=== PATIENT | male | born 1950 | race Caucasian/White ===

== ENCOUNTER → 2017-05-01 19:31 | Outpatient (CLI) | payer BC, MEDICARE | END | disposition home or self-care (01) | LOC: D.SLEEP 19:31 | DX: G47.33 Obstructive sleep apnea (adult) (pediatric) (principal) ==

== ENCOUNTER 2017-09-27 05:21 | Day surgery (SDC) | payer BC, MEDICARE ==
[2017-09-26 16:10] LABS: HEMATOCRIT 37.5 % (42.0-54.0); HEMOGLOBIN 12.5 g/dL (13.5-17.5); MCHC 33.3 g/dL (31.0-37.0); MCV 83.9 fL (80.0-100.0); RBC 4.47 10x6/uL (4.20-6.10); WBC 11.3 10x3/uL (4.8-10.8)
[~2017-09-27] VITALS: Ht 182.9 cm; Wt 113.4 kg
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
[2017-09-27] MEDS ORDERED: OMEPRAZOLE20 M1 PO (09:19)
[2017-09-27] MEDS ORDERED: DIOVAN80 MG PO (09:20)
[2017-09-27] MEDS ORDERED: NIFEDIPINE ER60 MG PO (09:20)
[2017-09-27] MEDS ORDERED: ARICEPT5 MG PO (09:21)
[2017-09-27] MEDS ORDERED: LEXAPRO20 MG PO (09:21)
[2017-09-27] MEDS ORDERED: ATIVAN1 MG PO (09:22)
[2017-09-27] MEDS ORDERED: DESERYL100 MG PO (09:22)
[2017-09-27] MEDS ORDERED: FLOMAX0.4 MG PO (09:22)
[2017-09-27] MEDS ORDERED: PROAIR HFA8.5 GM INH (09:23)
[2017-09-27] MEDS ORDERED: IBUPROFEN800 MG PO (09:23)
[2017-09-27] MEDS ORDERED: NEURONTIN600 MG PO (09:23)
[2017-09-27] MEDS ORDERED: ULTRAM50 MG PO (09:24)
[2017-09-27] MEDS ORDERED: LIORESAL 10 MG10 MG PO (09:25)
[2017-09-27 09:29] VITALS: BP 147/80; Ht 182.9 cm; Wt 113.4 kg
[2017-09-27] MEDS ORDERED: PROSCAR5 MG PO (12:35)
== END 2017-09-27 13:30 | disposition home or self-care (01) ==
LOC: D.OPS 05:21 → D.PAN 07:30 → D.OPS 10:45
PROVIDERS: Anesthesiology
DX: N39.41 Urge incontinence (principal); N40.0 Benign prostatic hyperplasia without lower urinary tract symptoms; J45.909 Unspecified asthma, uncomplicated; I10 Essential (primary) hypertension; I50.9 Heart failure, unspecified; J44.9 Chronic obstructive pulmonary disease, unspecified; G47.30 Sleep apnea, unspecified; K21.9 Gastro-esophageal reflux disease without esophagitis; Z01.812 Encounter for preprocedural laboratory examination

== ENCOUNTER 2018-06-21 09:59 | Inpatient (IN) | payer BC, MEDICARE ==
[~2018-06-21 09:59] MED LIST: ARICEPT5 MG PO; ATIVAN1 MG PO; DESERYL100 MG PO; DIOVAN80 MG PO; FLOMAX0.4 MG PO; IBUPROFEN800 MG PO; LEXAPRO20 MG PO; LIORESAL 10 MG10 MG PO; NEURONTIN600 MG PO; NIFEDIPINE ER60 MG PO; OMEPRAZOLE20 M1 PO; PROAIR HFA8.5 GM INH; PROSCAR5 MG PO; ULTRAM50 MG PO
[2018-06-21] MEDS ORDERED: NORCO 10-325 TA1 TAB PO (13:16)
[2018-06-21 13:39] LABS: BASOPHILS 0.1 % (0-2); EOSINOPHILS 0.5 % (0-7); HEMATOCRIT 41.1 % (42.0-54.0); HEMOGLOBIN 14.2 g/dL (13.5-17.5); IMMATURE GRANULOCYTES 0.3 % (0-5); LYMPHOCYTES 13.5 % (15-50); MCH 30.1 pg (26.0-34.0); MCHC 34.5 g/dL (31.0-37.0); MCV 87.3 fL (80.0-100.0); MEAN PLATELET VOLUME 9.3 fL (7.4-10.4); MONOCYTES 7.4 % (2-11); NEUTROPHILS 78.2 % (40-80); PLATELET COUNT 236 10x3/uL (130-400); RBC 4.71 10x6/uL (4.20-6.10); RDW 14.4 % (11.5-14.5); WBC 12.9 10x3/uL (4.8-10.8)
[2018-06-21 13:58] LABS: ALBUMIN 3.7 g/dL (3.4-5.0); ANION GAP 12.9 mmol/L (8-16); BILIRUBIN - TOTAL 0.7 mg/dL (0.2-1.3); CALCIUM 8.8 mg/dL (8.5-10.1); CARBON DIOXIDE 23.7 mmol/L (21.0-32.0); CREATININE - SERUM 1.8 mg/dL (0.6-1.3); POTASSIUM - SERUM 3.6 mmol/L (3.5-5.1); PROTEIN - SERUM 7.4 g/dL (6.4-8.2)
[2018-06-21 18:03] LABS: APPEARANCE CLEAR (CLEAR); BILIRUBIN NEGATIVE (NEGATIVE); COLOR YELLOW (YELLOW); GLUCOSE NEGATIVE (NEGATIVE); KETONE NEGATIVE (NEGATIVE); NITRITE NEGATIVE (NEGATIVE); PROTEIN 1+ mg/dL (NEGATIVE); SPECIFIC GRAVITY 1.015 (1.005-1.020); UROBILINOGEN NORMAL (NORMAL)
[2018-06-21 18:07] LABS: BACTERIA FEW /hpf (NONE SEEN); EPITHELIAL CELLS 0-5 /hpf (0-5); WHITE CELLS - URINE 0-5 /hpf (0-5)
[2018-06-21 20:00] VITALS: BP 172/95
[2018-06-21 21:09] VITALS: BMI 34.0
[2018-06-22] VITALS: BP 177/94
[2018-06-22 04:00] VITALS: BP 172/86
[2018-06-22 05:47] LABS: BASOPHILS 0.2 % (0-2); EOSINOPHILS 2.5 % (0-7); HEMOGLOBIN 13.4 g/dL (13.5-17.5); IMMATURE GRANULOCYTES 0.3 % (0-5); LYMPHOCYTES 19.7 % (15-50); MCH 29.3 pg (26.0-34.0); MCHC 33.5 g/dL (31.0-37.0); MCV 87.3 fL (80.0-100.0); MEAN PLATELET VOLUME 9.4 fL (7.4-10.4); MONOCYTES 11.9 % (2-11); NEUTROPHILS 65.4 % (40-80); PLATELET COUNT 247 10x3/uL (130-400); RBC 4.58 10x6/uL (4.20-6.10); RDW 14.3 % (11.5-14.5); WBC 12.9 10x3/uL (4.8-10.8)
[2018-06-22 06:28] LABS: ALBUMIN 3.4 g/dL (3.4-5.0); ANION GAP 15.5 mmol/L (8-16); BILIRUBIN - TOTAL 0.65 mg/dL (0.2-1.3); CALCIUM 8.3 mg/dL (8.5-10.1); CARBON DIOXIDE 21.7 mmol/L (21.0-32.0); CREATININE - SERUM 1.6 mg/dL (0.6-1.3); MAGNESIUM - SERUM 1.7 mg/dL (1.8-2.4); POTASSIUM - SERUM 3.2 mmol/L (3.5-5.1); PROTEIN - SERUM 6.9 g/dL (6.4-8.2)
[2018-06-22 08:28] VITALS: BP 167/87
[2018-06-22 12:09] VITALS: BP 173/96
[2018-06-22 15:31] VITALS: BP 152/85
[2018-06-22 19:58] VITALS: BP 175/101
[2018-06-23] VITALS: BP 148/77
[2018-06-23 04:00] VITALS: BP 152/80
[2018-06-23 05:41] LABS: BASOPHILS 0.3 % (0-2); EOSINOPHILS 2.9 % (0-7); HEMATOCRIT 38.7 % (42.0-54.0); HEMOGLOBIN 13.2 g/dL (13.5-17.5); IMMATURE GRANULOCYTES 0.3 % (0-5); LYMPHOCYTES 20.7 % (15-50); MCH 29.8 pg (26.0-34.0); MCHC 34.1 g/dL (31.0-37.0); MCV 87.4 fL (80.0-100.0); MEAN PLATELET VOLUME 9.2 fL (7.4-10.4); MONOCYTES 10.8 % (2-11); PLATELET COUNT 240 10x3/uL (130-400); RBC 4.43 10x6/uL (4.20-6.10); RDW 14.5 % (11.5-14.5); WBC 11.9 10x3/uL (4.8-10.8)
[2018-06-23 06:17] LABS: ALBUMIN 3.3 g/dL (3.4-5.0); ANION GAP 13.5 mmol/L (8-16); BILIRUBIN - TOTAL 0.57 mg/dL (0.2-1.3); CALCIUM 8.3 mg/dL (8.5-10.1); CARBON DIOXIDE 23.3 mmol/L (21.0-32.0); CREATININE - SERUM 1.4 mg/dL (0.6-1.3); POTASSIUM - SERUM 3.8 mmol/L (3.5-5.1); PROTEIN - SERUM 6.4 g/dL (6.4-8.2)
[2018-06-23 09:07] VITALS: BP 167/95
[2018-06-23 15:26] VITALS: BP 169/87
[2018-06-23 19:10] VITALS: BP 163/77
[2018-06-24 04:00] VITALS: BP 166/90
[2018-06-24 08:47] VITALS: BP 69/91
[2018-06-24] MEDS ORDERED: LEVAQUIN250 MG PO (11:50)
== END 2018-06-24 13:10 | disposition home or self-care (01) | DRG 373 ==
LOC: D.SDCHOLD 09:59 → D.MS 10:00 → D.SDCHOLD 10:08 → D.MS 11:51
PROVIDERS: Family Medicine
DX: A04.9 Bacterial intestinal infection, unspecified (principal); E86.0 Dehydration; A08.4 Viral intestinal infection, unspecified

== ENCOUNTER → 2018-07-09 12:31 | Outpatient (CLI) | payer BC, MEDICARE ==
[2018-06-21 21:09] VITALS: BMI 34.0
[~2018-07-09 12:31] MED LIST changes: +LEVAQUIN250 MG PO; +NORCO 10-325 TA1 TAB PO
== END | disposition home or self-care (01) ==
LOC: D.US 12:31
DX: I12.9 Hypertensive chronic kidney disease with stage 1 through stage 4 chronic kidney disease, or unspecified chronic kidney disease (principal); N18.3 Chronic kidney disease, stage 3 (moderate)

== ENCOUNTER → 2018-10-14 08:00 | Outpatient (CLI) | payer BC, MEDICARE ==
[~2018-10-14 08:00] MED LIST changes: +ALBUTEROL SULF8.5 GM INH; +NEURONTIN 300300 MG PO; -NEURONTIN600 MG PO; -PROAIR HFA8.5 GM INH
[2018-10-14 15:00] LABS: HEMATOCRIT 43.1 % (42.0-54.0); HEMOGLOBIN 14.7 g/dL (13.5-17.5); MCH 30.1 pg (26.0-34.0); MCHC 34.1 g/dL (31.0-37.0); MCV 88.1 fL (80.0-100.0); RBC 4.89 10x6/uL (4.20-6.10); RDW 14.7 % (11.5-14.5); WBC 12.9 10x3/uL (4.8-10.8)
--- NOTE | 2018-10-14 15:48 | NUR ---
CHAL[facility] NOTE: EKG REVIEWED BY DR. ECHEVARRIA. STATES PATIENT NEEDS EKG CLEARED BY CARDIOLOGY. HUI AT DR. BURTON'S OFFICE NOTIFIED. APPOINTMENT WITH CARDIOLOGY SET FOR 10/23 AT 0930. [facility] WILL NOTIFY PATIENT OF ABOVE. EKG IMAGES FAXED TO CARDIOLOGY.
== END | disposition home or self-care (01) ==
LOC: D.OPS 08:00 → EDSTATUS 10-17 08:00 → D.OPS 10-17 08:00 → D.PAN 10-17 08:00
PROVIDERS: Anesthesiology
DX: N40.1 Benign prostatic hyperplasia with lower urinary tract symptoms (principal); Z53.09 Procedure and treatment not carried out because of other contraindication; Z01.812 Encounter for preprocedural laboratory examination

== ENCOUNTER 2018-11-21 07:05 | Day surgery (SDC) | payer BC, MEDICARE ==
[2018-11-19 10:46] LABS: HEMATOCRIT 40.3 % (42.0-54.0); HEMOGLOBIN 13.7 g/dL (13.5-17.5); MCV 88.2 fL (80.0-100.0); MEAN PLATELET VOLUME 8.7 fL (7.4-10.4); RBC 4.57 10x6/uL (4.20-6.10); RDW 14.9 % (11.5-14.5); WBC 9.1 10x3/uL (4.8-10.8)
[~2018-11-21] VITALS: Ht 182.9 cm; Wt 114.3 kg
[2018-11-21] MEDS ORDERED: PERCOCET 7.5/321 TAB PO (07:34)
[2018-11-21 08:00] VITALS: BP 153/90; Ht 182.9 cm; Wt 114.3 kg
--- NOTE | 2018-11-21 10:10 | NUR ---
REC'D FROM SURGERY. FAMILY AT BEDSIDE. ICE WATER AND FL TRAY BROUGHT TO PT.
--- NOTE | 2018-11-21 10:40 | NUR ---
TOLERATED FL TRAY AND AMBULATED TO BATHROOM AND VOIDED WITHOUT DIFFICULTY.
--- NOTE | 2018-11-21 11:22 | NUR ---
WRITTEN AND VERBAL DC INST. GIVEN TO PT. VERBALIZED UNDERSTANDING.
--- NOTE | 2018-11-21 11:30 | NUR ---
DC'D HOME WITH FAMILY VIA PRIVATE VEHICLE. TAKEN TO VEHICLE VIA WC. STABLE AT TIME OF DC.
--- NOTE | 2018-11-22 09:02 | OP ---
PATIENT NAME: LILLIANA WILCOX MEDICAL RECORD: [id number] :50 LOCATION:[facility] ADMISSION DATE: SURGEON: PHOEBE BURTON MD DATE OF OPERATION: 11/21/2018 SURGEON: Phoebe Burton MD ANESTHESIA: TIVA by Dequan Caballero CRNA DIAGNOSES: Obstructive BPH with 40 mL prostate on HUGH, IPSS equals 12, and quality of life score equals 4. These scores are with the patient on finasteride and tamsulosin for over one year. PROCEDURE: UroLift times 4 implants. FINDINGS: Bilateral lateral lobes which are obstructive. Minimal median lobe present. Single ureteral orifices bilaterally without any bladder tumors. BLOOD LOSS: Minimal. CLINICAL HISTORY: This is a 68-year-old male who has bladder outlet obstruction. He has been on tamsulosin and finasteride for over one year and he still has significant voiding symptoms. He comes now to have UroLift procedure done. HE IS ALLERGIC TO FLAGYL AND PENICILLIN. We gave him Levaquin on-call to the OR. DESCRIPTION OF PROCEDURE: The patient was given IV sedation. He was then placed in the dorsal lithotomy position and prepped and draped. The UroLift scope was introduced with the findings as outlined above. We first inserted the 2 bladder neck level units in the anterolateral prostatic urethra. These were placed about 1.5 cm distal to the bladder neck. Then, we finally placed 2 more units at the level of the verumontanum, at the anterolateral prostatic urethra. He had a nice wide open of anterior urethral channel. The bladder was emptied through the scope and then the scope was removed. The patient was brought back to the preoperative holding area. I will see him back in followup in one month's time. TRANSINT:[id number] Voice Confirmation ID: [id number] DOCUMENT ID: [id number] PHOEBE BURTON MD at 0902 CC: [id number] DICTATION DATE: 11/21/18 1011 [facility] BROKER: 11/21/18 1835 [facility] 11/21/18 [id number] [place] [address]
== END 2018-11-21 11:30 | disposition home or self-care (01) ==
LOC: D.OPS 07:05
PROVIDERS: Anesthesiology; ATTEND Urology
DX: N40.1 Benign prostatic hyperplasia with lower urinary tract symptoms (principal); N13.8 Other obstructive and reflux uropathy; N32.0 Bladder-neck obstruction; Z88.1 Allergy status to other antibiotic agents; Z88.0 Allergy status to penicillin; Z01.812 Encounter for preprocedural laboratory examination

== ENCOUNTER → 2019-04-11 10:38 | Outpatient (CLI) | payer MEDICARE ==
[2018-11-21 08:00] VITALS: BMI 34.2
[~2019-04-11 10:38] MED LIST changes: +PERCOCET 7.5/321 TAB PO
== END | disposition home or self-care (01) ==
LOC: D.US 10:30
PROVIDERS: ATTEND Family Medicine
DX: R60.0 Localized edema (principal)

== ENCOUNTER → 2021-03-15 08:33 | Outpatient (CLI) | payer MEDICARE ==
[2018-11-21 08:00] VITALS: BMI 34.2
== END | disposition home or self-care (01) ==
LOC: D.HCCECHO 03-14 09:00
PROVIDERS: ATTEND Internal Medicine Cardiovascular Disease
DX: I10 Essential (primary) hypertension (principal); I20.9 Angina pectoris, unspecified